=== PATIENT | female | born 1975 | race Caucasian/White ===

== ENCOUNTER 2024-02-11 10:39 | Observation (INO) | payer SELFPAY ==
[2024-02-11] MEDS ORDERED: DIPHTH,PERTUSS(ACELL),TET 0.5 ML DISP.SYRIN IM ONE (11:08)
[2024-02-11 11:09] VITALS: BMI 33.4
[2024-02-11] MEDS ORDERED: ACETAMINOPHEN INJECTION 100 ML IVPB ONE (11:16)
[2024-02-11] MEDS ORDERED: LIDOCAINE 5% TOPICAL PATCH ONE (11:16)
[2024-02-11] MEDS: SODIUM CHLORIDE 0.9% 1000 ML INFUS.BAG IV ONE (12:40)
[2024-02-11] MEDS: ACETAMINOPHEN 1000 MG/100 ML BAG IVPB ONE (12:45)
[2024-02-11 13:16] LABS: INR 0.97 (0.83-1.09); PROTHROMBIN TIME (PATIENT) 11.1 SEC (9.7-13.0)
[2024-02-11 13:18] LABS: ACTIVATED PTT 26.3 SECONDS (25.2-36.5)
[2024-02-11] MEDS: morphine CARPU-JECT 2 MG/1 ML DISP.SYRIN IVPUSH ONE (13:20)
[2024-02-11] MEDS: LIDOCAINE 5% TOPICAL PATCH TP ONE (13:20)
[2024-02-11 13:26] LABS: HEMOGLOBIN 9.6 G/dL (10.7-15.3); MCH 22.4 pg (25.7-33.7); MEAN CELL VOLUME 72.3 fl (80-96); MEAN PLT VOLUME 8.6 fl (7.5-11.1); PLATELET COUNT 291.4 10^3/uL (134-434); RBC 4.29 10^6/uL (3.60-5.2); RDW 20.9 % (11.6-15.6); WHITE BLOOD COUNT 5.5 10^3/uL (4.0-10.8)
[2024-02-11 13:31] LABS: ALBUMIN 4.2 g/dl (3.4-5.0); ALK PHOS 81 U/L (45-117); ANION GAP 7 mmol/L (4-13); BILIRUBIN,TOTAL 0.3 mg/dl (0.2-1); CALCIUM 9.5 mg/dl (8.5-10.1); CHLORIDE 104 mmol/L (98-107); CO2 27 mmol/L (21-32); CREATININE 0.7 mg/dl (0.6-1.3); GLUCOSE,RANDOM 83 mg/dl (74-106); SGOT/AST 17 U/L (15-37); SGPT/ALT 13 U/L (7-52); SODIUM 138 mmol/L (136-145); TOT PROT 6.5 g/dl (6.4-8.2)
[2024-02-11 13:31] LABS: CHOLESTEROL 174 mg/dL (50-200); HDL CHOLESTEROL 63 mg/dL (40-60); LDL CHOLESTEROL (ONLY DFH) 83 mg/dL (5-100)
[2024-02-11 13:57] LABS: N-TERMINAL BNP 32.6 pg/ml (5-125)
[2024-02-11 14:48] LABS: ANISOCYTOSIS 2+; PLATELET ESTIMATE ADEQUATE
[2024-02-11] MEDS: LIDOCAINE PATCH REMOVAL MC ONE (21:43)
[2024-02-11] MEDS: FERROUS SO4 325 MG TABLET (FP) PO SCH (21:43)
[2024-02-11] MEDS: BACITRACIN ZINC 15 GM TUBE TOPICAL OINTMENT TP SCH (21:53)
[2024-02-12] MEDS: ACETAMINOPHEN 1000 MG/100 ML BAG IVPB PRN (03:07)
[2024-02-12 09:00] LABS: ALBUMIN 3.5 g/dl (3.4-5.0); BILIRUBIN,TOTAL 0.3 mg/dl (0.2-1); CALCIUM 8.8 mg/dl (8.5-10.1); CREATININE 0.5 mg/dl (0.6-1.3); POTASSIUM 4.1 mmol/L (3.5-5.1); TOT PROT 5.4 g/dl (6.4-8.2)
[2024-02-12 09:30] LABS: BASO % 0.6 % (0-2.0); HEMATOCRIT 27.9 % (32.4-45.2); HEMOGLOBIN 8.7 GM/dL (10.7-15.3); LYMPH % 54.2 % (8-40); MCH 21.9 pg (25.7-33.7); MCHC 31.2 g/dl (32.0-36.0); MEAN CELL VOLUME 70.1 fl (80-96); MEAN PLT VOLUME 9.1 fl (7.5-11.1); MONO % 10.3 % (3.8-10.2); NEUT % 29.9 % (42.8-82.8); PLATELET COUNT 271 10^3/uL (134-434); RBC 3.97 M/mm3 (3.60-5.2); RDW 19.7 % (11.6-15.6)
[2024-02-12 09:46] VITALS: PULSE 57; RESP 18
[2024-02-12 10:09] LABS: ANISOCYTOSIS 1+; MACROCYTOSIS 0
[2024-02-12 14:12] VITALS: BP 134/57; TEMP 98.5
== END 2024-02-12 17:38 | disposition home or self-care (01) ==
LOC: FER 10:39 → FM/S 14:01 → UNDOADMOB 14:01
DX: R55 Syncope and collapse (principal); D50.8 Other iron deficiency anemias
CPT/HCPCS: 0241U-QW; 36415; 70450-TC; 70486-TC; 71045-TC-FY; 72125-TC; 73562-TC-LT-FY; 73590-TC-LT-FY; 73630-TC-LT; 80053; 80061; 81003; 81025; 83036; 83735; 83880; 84439; 84443; 84484; 85025; 85027; 85610; 85730; 93005; 93880-TC; 99285-25; G0378; J0131